=== PATIENT | male | born 1975 | race Hispanic/Latino ===

== ENCOUNTER 2018-03-02 20:29 | Emergency (ER) | payer MEDICAID ==
[2018-03-02 21:14] VITALS: BMI 41.8
[2018-03-02 21:32] VITALS: TEMP 97.8
--- NOTE | 2018-03-02 22:04 | ED PDOC ---
Arrival/HPI - General Historian: Patient - History of Present Illness Time/Duration: < week Symptom Onset: Gradual Symptom Course: Worsening Context: Home <Felipa Randall - Last Filed: 03/02/18 22:50> <Neville Schumacher - Last Filed: 03/03/18 18:04> - General Chief Complaint: Eye Problem - History of Present Illness Narrative History of Present Illness (Text): 03/02/18 21:58 42 yo M with PMH of hypertension presents complaining of right eye pain. Patient reports that yesterday, he hit his eye with his finger, and immediately had pain, which improved spontaneously that same day. Today, pain returned, and got progressively worse, and made it difficult look at his computer for prolonged periods of time. He also reports a diffuse headache, that started gradually, described as a dull aching. He has headaches daily, and this headache is similar to the headaches he has daily. He denies nausea, vomiting, confusion, fever, chills. He admits to anterior eye pain and persistent epiphora. Patient does not wear contacts. (Felipa Randall) Past Medical History - Provider Review Nursing Documentation Reviewed: Yes - Travel History Have you recently traveled outside [place] w/in the past 3 mons?: No - Past History Past History: Non-Contributing - Infectious Disease Hx of Infectious Diseases: None - Tetanus Immunization Tetanus Immunization: Unknown - Past Medical History Past Medical History: No Previous - Cardiac Hx Hypertension: Yes - Pulmonary Hx Respiratory Disorders: No - Neurological Hx Neurological Disorder: No - HEENT Hx HEENT Disorder: No - Renal Hx Renal Disorder: No - Endocrine/Metabolic Hx Endocrine Disorders: No - Hematological/Oncological Hx Blood Disorders: No - Integumentary Hx Dermatological Disorder: No - Musculoskeletal/Rheumatological Hx Musculoskeletal Disorders: No - Gastrointestinal Hx Gastrointestinal Disorders: No - Genitourinary/Gynecological Hx Genitourinary Disorders: No - Psychiatric Hx Depression: No Hx Emotional Abuse: No Hx Physical Abuse: No Hx Substance Use: No - Past Surgical History Past Surgical History: No Previous - Surgical History Hx Orthopedic Surgery: Yes (pins are face) - Anesthesia Hx Anesthesia: Yes - Suicidal Assessment Feels Threatened In Home Enviroment: No <Felipa Randall - Last Filed: 03/02/18 22:50> Family/Social History - Physician Review Nursing Documentation Reviewed: Yes Family/Social History: Unknown Family HX Smoking Status: Never Smoked Hx Alcohol Use: No Hx Substance Use: No Hx Substance Use Treatment: No <Griffin Randallram - Last Filed: 03/02/18 22:50> Allergies/Home Meds <Amine,Jonnathankarram - Last Filed: 03/02/18 22:50> <Neville Schumacher - Last Filed: 03/03/18 18:04> Allergies/Adverse Reactions: Allergies Penicillins Allergy (Verified 03/02/18 21:14) RASH Home Medications: Home Meds Medication Instructions Recorded Confirmed Metoprolol Tartrate [Lopressor] 50 mg PO DAILY 04/16/16 03/02/18 hydroCHLOROthiazide [Hydrodiuril] 1 tab PO DAILY 03/02/18 03/02/18 Review of Systems - Review of Systems Constitutional: Normal Eyes: Vision Changes (Vision from right eye slightly decreased acuity.), Eye Pain. absent: Photophobia ENT: Normal Respiratory: Normal Cardiovascular: Normal Gastrointestinal: Normal Genitourinary Male: Normal Musculoskeletal: Normal Skin: Normal Neurological: Normal Endocrine: Normal Hemo/Lymphatic: Normal Psychiatric: Normal <AmineGriffinram - Last Filed: 03/02/18 22:50> Physical Exam Vital Signs Reviewed: Yes Temperature: Afebrile Blood Pressure: Hypertensive Pulse: Regular Respiratory Rate: Normal Appearance: Positive for: Well-Appearing, Non-Toxic, Comfortable Pain Distress: None Mental Status: Positive for: Alert and Oriented X 3 - Systems Exam Head: Present: Atraumatic, Normocephalic Pupils: Present: PERRL Extroacular Muscles: Present: EOMI Conjunctiva: Present: Other (Right conjunctival injection. [place] Valle lamp exam with fluroscein shows apparent corneal abrasion at 1 o'clock approximately 1-2 mm away from limbus. Slit lamp exam shows same, without foreign body.) Mouth: Present: Moist Mucous Membranes Neck: Present: Normal Range of Motion. No: Meningeal Signs Respiratory/Chest: Present: Clear to Auscultation, Good Air Exchange. No: Respiratory Distress, Accessory Muscle Use Cardiovascular: Present: Regular Rate and Rhythm, Normal S1, S2 Upper Extremity: Present: Normal Inspection Lower Extremity: Present: Normal Inspection Neurological: Present: GCS=15, CN II-XII Intact Skin: Present: Warm, Dry, Normal Color Psychiatric: Present: Alert, Oriented x 3, Normal Insight, Normal Concentration <Felipa Randall - Last Filed: 03/02/18 22:50> <Neville Schumacher - Last Filed: 03/03/18 18:04> - Physical Exam Narrative Physical Exam (Text): 03/02/18 22:22 20/20 vision left eye 20/30 vision right eye, on Snellen exam (Felipa Randall) Vital Signs Temp Pulse Resp BP Pulse Ox 03/02/18 23:16 80 17 132/80 99 03/02/18 20:30 97.8 F 85 16 152/94 H 97 Medical Decision Making <Felipa Randall - Last Filed: 03/02/18 22:50> Reassessment Condition: Re-examined, Improved <Neville Schumacher - Last Filed: 03/03/18 18:04> ED Course and Treatment: 03/02/18 22:13 Impression: Right eye pain and headache Differential Diagnosis included but are not limited to: Corneal abrasion, Corneal ulcer, tension headache, cluster headache Plan: -- Tylenol and Zofran for headache -- Eye patch dressing for comfort -- Sulfacetamide drops for home -- Reassess and disposition Prior Visits: Notes and results from previous visits were reviewed. Patient was last seen in the emergency department on 04/16/2016 for ankle pain Progress Notes: 03/02/18 22:33 Patient reports headache improved. Last tetanus booster was >10 years ago. Ordered Tdap IM Patient will be discharged to home; instructed patient to follow up with an opthalmologist within one week, and to return to ER for any new or worsening concerns. (Felipa Randall) 03/02/18 22:43 42 year old male with past medical history of hypertension presents to the ED for right eye discomfort s/p trauma, associated headache. 03/03/18 18:01 patient with intact vision. pt with right eye corneal abrasion. pt to take sulfacetamide as directed. pt notified to use eye patch only for a few hours tonight and then leave open and to use sulfacetamide as directed for eye infection control/protection. pt to fu pmd and ophthalmology clinic 2-3 days to review symptoms. (Neville Schumacher) - Medication Orders Current Medication Orders: Discontinued Medications Acetaminophen (Tylenol 325mg Tab) 650 mg PO STAT STA Stop: 03/02/18 21:45 Last Admin: 03/02/18 21:56 Dose: 650 mg MAR Pain/Vitals Document 03/02/18 21:56 RD (Rec: 03/02/18 21:57 RD [id number]) Pain Reassessment Is This A Pain ReAssessment? No Sleep Is patient sleeping during reassessment? No Presence of Pain Presence of Pain Yes Location Pain Location Body [employer] Ondansetron HCl (Zofran Odt) 4 mg PO STAT STA Stop: 03/02/18 21:45 Last Admin: 03/02/18 21:57 Dose: 4 mg Tetanus/Reduced Diphtheria/Acell Pertussis (Boostrix Vaccine Inj) 0.5 ml IM .ONCE ONE Stop: 03/02/18 22:35 Last Admin: 03/02/18 23:15 Dose: 0.5 ml MAR Immunization Data Document 03/02/18 23:15 RD (Rec: 03/02/18 23:15 RD [id number]) Immunization Data Vaccine Information Sheet Given Yes Vaccine Information Sheet Given Date 03/02/18 Immunization Registry Document 03/02/18 23:15 RD (Rec: 03/02/18 23:15 RD [id number]) Immunization Registry Consent Date 03/02/18 <Felipa Randall - Last Filed: 03/02/18 22:50> - PA / STRATEGIC INSIGHTS LEAD / Resident Statement MD/ has reviewed & agrees with the documentation as recorded. MD/ has examined the patient and agrees with the treatment plan. - Scribe Statement The provider has reviewed the documentation as recorded by the Scribe <Neville Schumacher - Last Filed: 03/03/18 18:04> - Scribe Statement Forest Donovan. All medical record entries made by the Scribe were at my direction and personally dictated by me. I have reviewed the chart and agree that the record accurately reflects my personal performance of the history, physical exam, medical decision making, and the department course for this patient. I have also personally directed, reviewed, and agree with the discharge instructions and disposition. (Neville Schumacher) Disposition/Present on Arrival - Present on Arrival Any Indicators Present on Arrival: No History of DVT/PE: No History of Uncontrolled Diabetes: No Urinary Catheter: No History of Decub. Ulcer: No History Surgical Site Infection Following: None - Disposition Have Diagnosis and Disposition been Completed?: Yes Disposition Time: 22:36 Patient Plan: Discharge <Felipa Randall - Last Filed: 03/02/18 22:50> <Neville Schumacher - Last Filed: 03/03/18 18:04> - Disposition Diagnosis: Corneal abrasion Disposition: HOME/ ROUTINE Condition: GOOD Discharge Instructions (ExitCare): Corneal Abrasion (DC) Additional Instructions: Follow up with your primary doctor within one month Follow up with an opthalmologist within 3-5 days Use the sulfacetamide drops in your right eye 3 times daily For any new or worsening concerns, return to the ER Prescriptions: Sulfacetamide Sodium [Bleph 10% Eye Drops] 2 drop OD Q8 #1 bottle Referrals: Ramandeep Molina MD [Primary Care Provider] - Follow up with primary Forms: [employer] (Scottish)
[2018-03-02] MEDS ORDERED: TDAP Vaccine 0.5 mL Syr IM ONE (22:34)
[2018-03-02 23:17] VITALS: BP 132/80; PULSE 80; RESP 17; O2SAT 99
== END 2018-03-02 23:16 | disposition home or self-care (01) ==
LOC: ED 20:29
DX: S05.01XA Injury of conjunctiva and corneal abrasion without foreign body, right eye, initial encounter (principal); X58.XXXA Exposure to other specified factors, initial encounter; I10 Essential (primary) hypertension; Z23 Encounter for immunization

== ENCOUNTER 2018-03-14 15:53 | Emergency (ER) | payer MEDICAID ==
[2018-03-14 16:37] VITALS: BP 163/109; PULSE 105; RESP 16; TEMP 97.9; O2SAT 96; BMI 41.5
--- NOTE | 2018-03-14 16:50 | ED PDOC ---
Arrival/HPI - General Chief Complaint: Lower Extremity Problem/Injury Time Seen by Provider: 03/14/18 15:56 Historian: Patient - History of Present Illness Narrative History of Present Illness (Text): 03/14/18 16:46 This 42 yo male presents to this ED c/o left dorsal foot pain x 2 days. Patient stated he accidentally stepped on a shoe, which it caused his left foot to twist. Patient stated pain has been gradually worsen. Patient denies ankle pain, knee pain, hip pain, or back pain. Patient did not fall. Time/Duration: Other (see hpi) Quality: Aching Context: Home Past Medical History - Provider Review Nursing Documentation Reviewed: Yes - Past History Past History: Non-Contributing - Infectious Disease Hx of Infectious Diseases: None - Tetanus Immunization Tetanus Immunization: Unknown - Past Medical History Past Medical History: No Previous - Cardiac Hx Hypertension: Yes - Pulmonary Hx Respiratory Disorders: No - Neurological Hx Neurological Disorder: No - HEENT Hx HEENT Disorder: No - Renal Hx Renal Disorder: No - Endocrine/Metabolic Hx Endocrine Disorders: No - Hematological/Oncological Hx Blood Disorders: No - Integumentary Hx Dermatological Disorder: No - Musculoskeletal/Rheumatological Hx Musculoskeletal Disorders: No - Gastrointestinal Hx Gastrointestinal Disorders: No - Genitourinary/Gynecological Hx Genitourinary Disorders: No - Psychiatric Hx Depression: No Hx Emotional Abuse: No Hx Physical Abuse: No Hx Substance Use: No - Past Surgical History Past Surgical History: No Previous - Surgical History Hx Orthopedic Surgery: Yes (pins are face) - Anesthesia Hx Anesthesia: Yes - Suicidal Assessment Feels Threatened In Home Enviroment: No Family/Social History - Physician Review Nursing Documentation Reviewed: Yes Family/Social History: Other (noncontributory) Smoking Status: Never Smoked Hx Alcohol Use: No Hx Substance Use: No Hx Substance Use Treatment: No Allergies/Home Meds Allergies/Adverse Reactions: Allergies Penicillins Allergy (Verified 03/02/18 21:14) RASH Home Medications: Home Meds Medication Instructions Recorded Confirmed Metoprolol Tartrate [Lopressor] 50 mg PO DAILY 04/16/16 03/02/18 hydroCHLOROthiazide [Hydrodiuril] 1 tab PO DAILY 03/02/18 03/02/18 Review of Systems - Review of Systems Constitutional: Normal. absent: Fatigue, Weight Change, Fevers Eyes: Normal ENT: Normal Respiratory: Normal Cardiovascular: Normal Gastrointestinal: Normal Genitourinary Male: Normal Musculoskeletal: Other ((+) left foot pain) Skin: Normal Neurological: Normal Endocrine: Normal Hemo/Lymphatic: Normal Psychiatric: Normal Physical Exam Vital Signs Temp Pulse Resp BP Pulse Ox 03/14/18 16:24 97.9 F 105 H 16 163/109 H 96 Temperature: Afebrile Blood Pressure: Normal Pulse: Regular Respiratory Rate: Normal Appearance: Positive for: Well-Appearing, Non-Toxic, Comfortable Pain Distress: None Mental Status: Positive for: Alert and Oriented X 3 - Systems Exam Head: Present: Atraumatic, Normocephalic Pupils: Present: PERRL Extroacular Muscles: Present: EOMI Conjunctiva: Present: Normal Mouth: Present: Moist Mucous Membranes Neck: Present: Normal Range of Motion. No: Meningeal Signs, MIDLINE TENDERNESS , Paraspinal Tenderness Upper Extremity: Present: Normal Inspection, Normal ROM Lower Extremity: Present: NORMAL PULSES, Tenderness (Mild tenderness over base of 1st metatrasal area), Swelling (mild swelling), Neurovascularly Intact, Capillary Refill < 2 s. No: Edema, CALF TENDERNESS, Normal ROM (Decreased due to pain), Arik's Sign, Erythema, Deformity, Temperature Abnormalties Neurological: Present: GCS=15, CN II-XII Intact, Speech Normal, Motor Func Grossly Intact Skin: Present: Warm, Dry, Normal Color. No: Rashes Psychiatric: Present: Alert, Oriented x 3, Normal Insight, Normal Concentration Medical Decision Making ED Course and Treatment: 03/14/18 17:53 Re-evaluation. Patient feels better. Discussed results and plan with patient who expresses understanding. All questions answered and there is agreement with the plan to discharge home with instructions. Patient stable for discharge. Return if symptoms persist or worsen. Foot x-rays was negative for fracture. Patient was recommended to get a repeat foot x-rays if pain persist. Posterior orth splint was positioned by me. Patient was also recommended to f/u pmd, and grounds supervisor in 2-3 days. [id number]. Patient understood plan. Patient has his home crutches Re-evaluation Time: 17:55 Reassessment Condition: Re-examined, Improved - RAD Interpretation Narrative RAD Interpretations (Text): 03/14/18 17:55 Foot x-rays: No acute Fx. (+) sts Radiology Orders: 03/14/18 16:46 FOOT LEFT 3 VIEWS ROUTINE [RAD] Stat - Medication Orders Current Medication Orders: Discontinued Medications Ketorolac Tromethamine (Toradol) 30 mg IM STAT STA Stop: 03/14/18 16:47 Last Admin: 03/14/18 17:38 Dose: 30 mg MAR Pain Assessment Document 03/14/18 17:38 (Rec: 03/14/18 17:39 MR [id number]) Pain Reassessment Is this a pain reassessment? Yes Sleep Is patient sleeping during reassessment? No Presence of Pain Presence of Pain Yes Pain Scale Used Pain Scale Used Numeric Location Left, Right or Bilateral Left Pain Location Body Site Foot Description Description Intermittent Intensity of Pain at present 8 Pain Behavior Facial Grimacing Aggravating Factors Walking Alleviating Factors/Management Medication Techniques Alleviating Factors Medication IM Administration Charges Document 03/14/18 17:38 (Rec: 03/14/18 17:39 MR [id number]) Injection Site MAR Injection Site Left Deltoid Charges for Administration # of IM Administrations 1 Disposition/Present on Arrival - Present on Arrival Any Indicators Present on Arrival: No History of DVT/PE: No History of Uncontrolled Diabetes: No Urinary Catheter: No History of Decub. Ulcer: No History Surgical Site Infection Following: None - Disposition Have Diagnosis and Disposition been Completed?: Yes Diagnosis: Strain of foot, left Disposition: HOME/ ROUTINE Disposition Time: 18:01 Patient Plan: Discharge Condition: IMPROVED Discharge Instructions (ExitCare): Foot Sprain (DC) Additional Instructions: Call private doctor follow up visit in 2-3 days. Call Small Parts Shaper Operator if pain worsen or persist. Return to emergency if pain worsen. Keep foot elevated, ice , rest, crutches, splint for 5-7 days. Reviewed official foot x-rays report with your doctor in 2-3 days. If pain persist, you may need to have a repeat foot x-rays in 7 -10 days. Have your doctor recheck you blood pressure Prescriptions: Ibuprofen [Motrin] 600 mg PO Q8 PRN #20 tab PRN Reason: Pain, Severe (8-10) Referrals: Ramandeep Molina MD [Primary Care Provider] - Follow up with primary Forms: [employer] (Urdu), WORK NOTE
--- NOTE | 2018-03-14 18:31 | RAD ---
PROCEDURE: Left Foot Radiographs. HISTORY: pain COMPARISON: None. FINDINGS: BONES: No acute fracture or destructive bony lesion identified. A mild colitis seen extending through the subcutaneous soft tissue along the medial margins of the medial cuneiform bone through the medial navicular bone and immediately posterior to the medial part of it, simulating a fracture of the navicular. JOINTS: Normal. SOFT TISSUES: Normal. OTHER FINDINGS: None. IMPRESSION: Unremarkable left foot radiographs.
== END 2018-03-14 18:27 | disposition home or self-care (01) ==
LOC: ED 15:53
DX: S96.912A Strain of unspecified muscle and tendon at ankle and foot level, left foot, initial encounter (principal); W22.8XXA Striking against or struck by other objects, initial encounter; Y92.009 Unspecified place in unspecified non-institutional (private) residence as the place of occurrence of the external cause
CPT/HCPCS: 73630; 96372; 99283; J1885